=== PATIENT | female | born 1935 | race Caucasian/White ===

== ENCOUNTER 2016-11-29 17:37 | Inpatient (IN) | payer OTHER, MEDICARE ==
[~2016-11-29] VITALS: Ht 175.3 cm; Wt 96.6 kg
[~2016-11-29 17:37] MED LIST: CYMBALTA 30 MG30 MG PO; DUREZOL 5 ML5 ML OD; ILEVRO 1.7 ML1.7 ML OD; LIDODERM 5% PAT1 PAT EXT; LIPITOR80 MG PO; MULTAQ 400MG400 MG PO; PROTONIX 40MG T40 MG PO; TOPROL XL 25MG25 MG PO; TYLENOL TAB 32325 MG PO; VESICARE 5MG5 MG PO; VIGAMOX 0.60 GTT/1 B OD; VITAB121000 PO; VITAMIN D1000 IU PO; XARELTO20 MG PO
--- NOTE | 2016-11-29 17:42 | ED MVC/FALL/TRAUMA COMPLAINT ---
History of Present Illness General Chief Complaint: Fall Stated Complaint: BIBA FOR CALF PAIN S/P FALL Source: patient, EMS Exam Limitations: no limitations Allergies Coded Allergies: latex (BLISTERS 11/29/16) Reconcile Medications Amiodarone HCl 200 MG TABLET 1 TAB PO DAILY HEART (Reported) Atorvastatin Calcium 80 MG TABLET 1 TAB PO DAILY CHOLESTEROL (Reported) Escitalopram Oxalate 10 MG TABLET 1 TAB PO DAILY MENTAL HEALTH (Reported) Magnesium 200 MG TABLET 1 TAB PO DAILY SUPPLEMENT (Reported) Metoprolol Succinate 50 MG TAB.ER.24H 1 TAB PO DAILY HEART/BP (Reported) Multivitamin (Multi-Day Vitamins) 1 EACH TABLET 1 TAB PO DAILY SUPPLEMENT ( Reported) Pantoprazole Sodium 40 MG TABLET.DR 1 TAB PO DAILY GI (Reported) Rivaroxaban (Xarelto) 20 MG TABLET 1 TAB PO DAILY BLOOD THINNER (Reported) with food Solifenacin Succinate (Vesicare) 5 MG TABLET 1 TAB PO DAILY BLADDER (Reported ) Tramadol HCl 50 MG TABLET 1 TAB PO Q4-6H PRN PAIN (Reported) Triage Nurses Notes Reviewed? yes Onset: Abrupt Duration: hour(s): (1) Timing: multiple episodes today Severity: moderate, severe Injuries/Fall Location: lower extremity Method of Injury: fall Loss of Consciousness: no loss of consciousness Modifying Factors: Worsens With: movement. Associated Symptoms: KNEE SWELLING HPI: This is an 81-year-old female with history of sciatica, spinal stenosis, previous back surgeries done by Dr. Birmingham who presents to the ER with chief complaint of acute onset of left knee and left leg pain. She states she was coming home from a doctor's appointment and while trying to climb up stairs she states her left leg give way and she fell twice. She injured only her leg below the knee. Denies any head injury. Patient has a history of also of a Phalen on blood thinners. She was not able to bear weight after the fall and used her [employer] to call EMS. He should without pain in that extremity until the fall today. (NOE CHAIDEZ,YARA) Vital Signs & Intake/Output Vital Signs & Intake/Output Vital Signs Date Time Temp Pulse Resp B/P B/P Pulse O2 O2 Flow FiO2 Mean Ox Delivery Rate 11/29 2057 97.0 64 17 148/62 99 Room Air 11/29 1742 96.5 57 18 152/65 98 Room Air Past History Travel History Traveled to [place] past 21 day No Medical History Any Pertinent Medical History? 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 No (YARA LIU MD) Review of Systems Review of Systems Constitutional: Denies: chills, fever. Eyes: Reports: no symptoms. Ears, Nose, Throat, Mouth: Reports: no symptoms. Respiratory: Denies: cough, short of breath. Cardiovascular: Denies: chest pain. Gastrointestinal/Abdominal: Denies: abdominal pain. Genitourinary: Reports: no symptoms. Musculoskeletal: Reports: back pain (CHRONIC), joint pain, joint swelling. Skin: Reports: no symptoms. Neurological/Psychological: Denies: anxiety, numbness. All Other Systems: Reviewed and Negative (YARA LIU MD) Physical Exam Physical Exam General Appearance: well developed/nourished, alert, awake, anxious, mild distress, moderate distress Head: atraumatic, normal appearance Eyes: Bilateral: normal appearance, PERRL, EOMI. Ears, Nose, Throat, Mouth: hearing grossly normal, moist mucous membrane Neck: normal inspection, supple, full range of motion Respiratory: normal breath sounds, chest non-tender, no respiratory distress Cardiovascular: irregularly irregular Peripheral Pulses: 2+ radial (R), 2+ radial (L) Gastrointestinal: soft, non-tender Extremities: LEFT KNEE SWOLLEN, TENDER TO PALPATION TENDER OVER FIBULAR HEAD ON LEFT NO BRUISING STABLE KNEE JOINT Neurologic/Psych: no motor/sensory deficits, awake, alert Skin: intact, normal color, warm/dry Core Measures ACS in differential dx? No Severe Sepsis Present: No Septic Shock Present: No (YARA LIU MD) Progress Differential Diagnosis: FRACTURE, SPRAIN, DISLOCATION Plan of Care: Orders Procedure Date/time Status Heart Healthy Diet 11/30 B Active CBC WITHOUT DIFFERENTIAL 11/30 0600 Active BASIC ELECTROLYTES PLUS BUN&CR 11/30 06 Active PT Evaluate & Treat 11/29 230 Active Pathway - chart 11/29 230 Active House Staff 11/29 230 Active Code Status 11/29 230 Active Vital Signs 11/30 2227 Active Teach/Educate 11/30 2227 Active Pain Treatment and Response 11/30 2227 Active Nutritional Intake, Monitor 11/30 2227 Active Isolation 11/30 2227 Active Intake & Output 11/30 2227 Active Patient Care Conference 11/30 2227 Active Activity/Ambulation 11/30 2227 Active Saline Lock 11/29 2104 Active Misc Message 11/29 2104 Active ED Holding Orders 11/29 2104 Active Vital Signs 11/29 2104 Active Activity/Ambulation 11/29 2104 Active Code Status 11/29 2104 Complete Patient Data 11/29 2042 Active Admit to inpatient 11/29 2040 Active URINALYSIS 11/29 193 Active COMPREHENSIVE METABOLIC PANEL 11/29 193 Complete CBC WITHOUT DIFFERENTIAL 11/29 193 Complete CASE MANAGEMENT CONSULT 11/29 1928 Active Intake & Output 11/29 1751 Active VTE Mechanical Prophylaxis 11/29 UNK Active Vital Signs 11/29 UNK Active MISTAKE 11/29 UNK Active Intake & Output 11/29 UNK Active Current Medications Sig/Alexandra Start time Last Medication Dose Stop Time Status Admin Atorvastatin Calcium 80 MG 1700 11/30 1700 AC (Lipitor) Amiodarone HCl 200 MG DAILY 11/30 1000 AC (Cordarone) Escitalopram Oxalate 10 MG DAILY 11/30 1000 AC (Lexapro) Metoprolol Succinate 50 MG DAILY 11/30 1000 AC (Toprol Xl) Oxybutynin Chloride 5 MG DAILY 11/30 1000 AC (Ditropan) Rivaroxaban 20 MG DAILY 11/30 1000 AC (Xarelto) Omeprazole 40 MG DAILY AC 11/30 0700 AC (Prilosec) Tramadol HCl 50 MG Q6 PRN 11/29 2315 AC (Ultram) Acetaminophen 650 MG Q6P PRN 11/29 230 AC (Tylenol) Morphine Sulfate 2 MG Q4P PRN 11/29 230 AC (Morphine) Laboratory Tests 11/29/161947: CBC w Diff NO MAN DIFF REQ, RBC 4.38, MCV 92.4, MCH 30.3, RDW 15.5 H, MPV 9.9, Gran % 78.4 H, Lymphocytes % 14.5 L, Monocytes % 5.9, Eosinophils % 0.9, Basophils % 0.3, Absolute Granulocytes 6.6 H, Absolute Lymphocytes 1.2, Absolute Monocytes 0.5, Absolute Eosinophils 0.1, Absolute Basophils 0, PUBS MCHC 32.8 L 11/29/161942: Anion Gap 12, Estimated GFR > 60, BUN/Creatinine Ratio 23.8, Glucose 95, Calcium 9.7, Total Bilirubin 0.8, AST 46 H, ALT 58 H, Alkaline Phosphatase 112, Total Protein 7.6, Albumin 4.3, Globulin 3.3, Albumin/Globulin Ratio 1.3 TYLENOL, XRAYS ORDERED. XRAYS NEGATIVE. WILL ATTEMPT TO AMBULATE. SIGNED OUT TO DR CIFUENTES. (NOE CHAIDEZ,YARA) Diagnostic Imaging: Viewed by Me: Radiology Read. Discussed w/RAD: Radiology Read. Radiology Impression: PATIENT: ARMANDO HEATH PRESENT AGE: 81 PATIENT ACCOUNT NO: [id number] : 36 LOCATION: [facility] ORDERING PHYSICIAN: YARA LIU MD SERVICE DATE: 11/29/16 EXAM TYPE: RAD - XRY-KNEE COMPLETE LEFT; [id number], LEFT EXAMINATION: 1. Left knee. 2. Left tibia-fibula. CLINICAL INFORMATION: Left knee pain and swelling. Fall. COMPARISON: None TECHNIQUE: 1. Left knee: 3 views of left knee 2. Left tibia- fibula. 2 views FINDINGS: 1. LEFT KNEE. No acute abnormality. No fracture or dislocation. There is osteopenia. Degenerative joint disease. [id number] contact of the femur and tibia at the medial femoral tibial joint with marginal spur of the bone. There is significant spur of the patella and femur at the patellofemoral joint with joint space narrowing. No joint effusion. 2. LEFT TIBIA-FIBULA: No fracture. Tibia and fibula intact. IMPRESSION: 1. Left knee. No fracture or dislocation. Degenerative joint disease. 2. Left tibia-fibula. Normal. DICTATED BY: MILLY COOPER MD DATE/TIME DICTATED:11/29/161851 DATA SERVICES DEVELOPER:MANNY DATE/TIME TRANSCRIBED:11/29/161851 CONFIDENTIAL, DO NOT COPY WITHOUT APPROPRIATE AUTHORIZATION. <Electronically signed in Other Vendor System> SIGNED BY: MILLY COOPER MD 11/29/16 4568 Hand-Off Endorsed To: ATUL CIFUENTES MD Endorsed Time: 1911 Pending: other (AMBULATION TRIAL/CASE MANAGE) (NOE CHAIDEZ,YARA) Radiology Impression: PATIENT: ARMNADO HEATH PRESENT AGE: 81 PATIENT ACCOUNT NO: [id number] : 36 LOCATION: [facility] ORDERING PHYSICIAN: ATUL CIFUENTES MD SERVICE DATE: 11/29/16 EXAM TYPE: CAT - CT LOWER EXT WO IV CONTRAST; CT LUMB SPINE WO IV CONTRAST EXAMINATION: CT LEFT KNEE AND CT LUMBAR SPINE WITHOUT CONTRAST. CLINICAL INFORMATION: Left knee pain evaluate for tibial fracture. 3 views back surgeries. Pain. COMPARISON: Left knee x-ray performed 11/29/2016. TECHNIQUE: Axilla 2.5 mm thin and reformatted 1 mm thin coronal and sagittal images of left knee were obtained. Dose 1055. Axial 2.5 mm thin and reformatted 2 mm coronal and sagittal images of lumbar spine were obtained. Dose 982. FINDINGS: LEFT LOWER EXTREME/KNEE. There is diffuse osteopenia. There is loss of tricompartment joint space with moderate periarticular spurring. There is no visible fracture. Especially there is no tibial plateau fracture seen. There is no abnormal joint effusion noted either. There is a small to moderate-sized enthesophyte along the superior patella. No loose bodies identified in the joint space. The soft tissues are normal. LUMBAR SPINE: On sagittal reconstructed lumbar spine there is normal lumbar lordosis. Loss of disc height from L1-L2 through L5-S1 disc levels with vacuum disc phenomenon is noted. There is moderate spondylosis seen at all lumbar disc levels. The prevertebral an paraspinal soft tissues appear unremarkable. There is no visible acute fracture or dislocation seen. There is a broad-based laminectomy from L1 through L5 vertebra.. There is minimal disc bulge at L1-L2 disc level but no spinal stenosis. The neural foramina are patent. L2-L3 disc level there is posterior spondylosis/bulge complex without spinal stenosis. The new foramina are patent bilaterally. At L3-L4 disc level there is mild central disc bulge/osteophyte complex without spinal stenosis. New foramina patent bilaterally. At L4-L5 disc level there is diffuse bulge without spinal stenosis. The neural foramina are patent. Mild facet joint hypertrophy seen. At L5-S1 disc level there is no signal disc bulge, herniation or spinal stenosis. IMPRESSION: No visible fracture of left knee. There is diffuse osteopenia. There is tricompartment degenerative arthritis. No loose bodies or joint effusion seen. Laminectomy from L1 to L5 vertebra. There is underlying diffuse bulge/osteophyte complex L1-L2 level L2 L2 well 3-4 disc level and mild bulge L4-L5 disc levels but without spinal stenosis. There is no visible acute fracture or dislocation. There is moderate ventral spondylosis. DICTATED BY: TYSHAWN CHAIDEZ,KRISSY DATE/TIME DICTATED:11/29/162102 DATA SERVICES DEVELOPER:MANNY DATE/TIME TRANSCRIBED:11/29/162102 CONFIDENTIAL, DO NOT COPY WITHOUT APPROPRIATE AUTHORIZATION. <Electronically signed in Other Vendor System> SIGNED BY: TYSHAWN CHAIDEZ,KRISSY 11/29/162119 Comments: Patient unable to ambulate on her left leg. Patient lives at home alone. Patient is unsafe to go home. We'll obtain a CAT scan to rule out a tibial plateau fracture. Family is also requesting a CAT scan of her lumbar spine since she has had 3 surgeries on her lower back and the last time there were complications and they're concerned that this may be attributing to her leg pain. Labs are being drawn. Patient will require admission to the hospital for pain control, PT evaluation with anticipation of short-term rehabilitation. (ESAU CHAIDEZ,ATUL Arana) Departure Departure Disposition: STILL A PATIENT Condition: Stable Clinical Impression Primary Impression: Left knee pain Referrals: JENNIFER CHAIDEZ,LACHO Bowden (PCP/Family) Departure Forms: Customer Survey General Discharge Information (NOE CHAIDEZ,YARA) Admission Note Spoke With: CLAIR MILLS MD Documentation of Exam: Documentation of any treatments & extenuating circumstances including Concerns Regarding Discharge (functional status, medication knowledge or non-compliance, living conditions, etc.) that warrant an admission rather than observation: [ Patient is unable to ambulate despite Tylenol. Patient lives at home alone. Patient is very unsafe to be discharged at this point. A CAT scan has been ordered on her need to rule out a tibial plateau fracture as well as her lumbar spine since she has known spinal stenosis and has had 3 surgeries on her spine. Patient will require physical therapy evaluation and treatment. Anticipate short-term rehabilitation. If the CAT scan does show a tibial plateau fracture, orthopedics will be consulted.] (ESAU CHAIDEZ,ATUL Arana)
[2016-11-29] MEDS ORDERED: XARELTO20 M2 PO (18:51)
[2016-11-29] MEDS ORDERED: METOPROLOL SUCC50 M2 PO (18:52)
[2016-11-29] MEDS ORDERED: VESICARE5 M1 PO (18:52)
[2016-11-29] MEDS ORDERED: ATORVASTATIN CA80 M1 PO (18:52)
[2016-11-29] MEDS ORDERED: PANTOPRAZOLE SO40 M1 PO (18:52)
[2016-11-29] MEDS ORDERED: AMIODARONE HCL200 M1 PO (18:52)
[2016-11-29] MEDS ORDERED: TRAMADOL HCL50 M1 PO (18:53)
[2016-11-29] MEDS ORDERED: ESCITALOPRAM OX10 MG PO (18:53)
[2016-11-29] MEDS ORDERED: MULTI-DAY VITA1 EACH PO (18:54)
[2016-11-29] MEDS ORDERED: MAGNESIUM200 M1 PO (18:54)
--- NOTE | 2016-11-29 18:59 | RADIOLOGY REPORT ---
EXAMINATION: 1. Left knee. 2. Left tibia-fibula. CLINICAL INFORMATION: Left knee pain and swelling. Fall. COMPARISON: None TECHNIQUE: 1. Left knee: 3 views of left knee 2. Left tibia-fibula. 2 views FINDINGS: 1. LEFT KNEE. No acute abnormality. No fracture or dislocation. There is osteopenia. Degenerative joint disease. [id number] contact of the femur and tibia at the medial femoral tibial joint with marginal spur of the bone. There is significant spur of the patella and femur at the patellofemoral joint with joint space narrowing. No joint effusion. 2. LEFT TIBIA-FIBULA: No fracture. Tibia and fibula intact. IMPRESSION: 1. Left knee. No fracture or dislocation. Degenerative joint disease. 2. Left tibia-fibula. Normal.
[2016-11-29 20:10] LABS: ABSOLUTE BASOPHIL COUNT 0 /CUMM (0.0-0.2); ABSOLUTE EOSINOPHIL COUNT 0.1 /CUMM (0.0-0.7); ABSOLUTE GRANULOCYTE CT 6.6 /CUMM (1.4-6.5); ABSOLUTE LYMPH COUNT 1.2 /CUMM (1.2-3.4); ABSOLUTE MONOCYTE COUNT 0.5 /CUMM (0.10-0.60); BASOPHIL % 0.3 % (0.0-2.0); EOSINOPHIL % 0.9 % (0-5); GRANULOCYTE % 78.4 % (42.2-75.2); HEMATOCRIT 40.4 % (37-47); MEAN CORPUSCULAR HGB 30.3 PG (27.0-31.0); MEAN CORPUSCULAR HGB CONC 32.8 G/DL (33.0-37.0); MEAN CORPUSCULAR VOLUME 92.4 FL (81.0-99.0); MEAN PLATELET VOLUME 9.9 FL (7.4-10.4); PLATELET COUNT 213 /CUMM (130-400); RBC DISTRIBUTION WIDTH 15.5 % (11.5-14.5); RED BLOOD CELL CT 4.38 /CUMM (4.20-5.40); WHITE BLOOD CELL COUNT 8.4 /CUMM (4.8-10.8)
--- NOTE | 2016-11-29 21:20 | CT SCAN REPORT ---
EXAMINATION: CT LEFT KNEE AND CT LUMBAR SPINE WITHOUT CONTRAST. CLINICAL INFORMATION: Left knee pain evaluate for tibial fracture. 3 views back surgeries. Pain. COMPARISON: Left knee x-ray performed 11/29/2016. TECHNIQUE: Axilla 2.5 mm thin and reformatted 1 mm thin coronal and sagittal images of left knee were obtained. Dose 1055. Axial 2.5 mm thin and reformatted 2 mm coronal and sagittal images of lumbar spine were obtained. Dose 982. FINDINGS: LEFT LOWER EXTREME/KNEE. There is diffuse osteopenia. There is loss of tricompartment joint space with moderate periarticular spurring. There is no visible fracture. Especially there is no tibial plateau fracture seen. There is no abnormal joint effusion noted either. There is a small to moderate-sized enthesophyte along the superior patella. No loose bodies identified in the joint space. The soft tissues are normal. LUMBAR SPINE: On sagittal reconstructed lumbar spine there is normal lumbar lordosis. Loss of disc height from L1-L2 through L5-S1 disc levels with vacuum disc phenomenon is noted. There is moderate spondylosis seen at all lumbar disc levels. The prevertebral an paraspinal soft tissues appear unremarkable. There is no visible acute fracture or dislocation seen. There is a broad-based laminectomy from L1 through L5 vertebra.. There is minimal disc bulge at L1-L2 disc level but no spinal stenosis. The neural foramina are patent. L2-L3 disc level there is posterior spondylosis/bulge complex without spinal stenosis. The new foramina are patent bilaterally. At L3-L4 disc level there is mild central disc bulge/osteophyte complex without spinal stenosis. New foramina patent bilaterally. At L4-L5 disc level there is diffuse bulge without spinal stenosis. The neural foramina are patent. Mild facet joint hypertrophy seen. At L5-S1 disc level there is no signal disc bulge, herniation or spinal stenosis. IMPRESSION: No visible fracture of left knee. There is diffuse osteopenia. There is tricompartment degenerative arthritis. No loose bodies or joint effusion seen. Laminectomy from L1 to L5 vertebra. There is underlying diffuse bulge/osteophyte complex L1-L2 level L2 L2 well 3-4 disc level and mild bulge L4-L5 disc levels but without spinal stenosis. There is no visible acute fracture or dislocation. There is moderate ventral spondylosis.
--- NOTE | 2016-11-29 21:47 | History & Physical ---
[facility] 2146: General Information and HPI MD Statement: I have seen and personally examined ARMANDO HEATH and documented this H&P. The patient is a 81 year old F who presented with a patient stated chief complaint of [fall]. Source of Information: patient Exam Limitations: no limitations History of Present Illness: 81-year-old female with past medical history of paroxysmal atrial fibrillation on xarelto, coronary artery disease status post bare metal stent, 6 years ago, compatible with MRI, sciatica, spinal stenosis, hyperlipidemia, arrhythmia and tachycardia status post Holter monitor placement, came in for chief complaint of left leg pain status post fall. Over the last week, patient has been having sciatica pain, low back pain, and is supposed to get steroid injection on 11/30/2016. Patient was going into her house on 11/29/2016, when her left leg "gave out" outside her house and she fell forward. She was unable to get up, her neighbor helped her up. She then went to see Dr. Perez. She came home, and fell again in her house and was unable to get up. She reports 6 out of 10 resting left leg pain, and severe 10 out of 10 pain on weightbearing. Therefore she is not felt to be safe at home and will likely need acute rehabilitation. Her pain is mainly on the lateral side of the knee and just below the knee. Range of motion was severely compromised due to pain. She was only able to do 10-20 left knee flexion. She reports some tingling sensation on both lower extremities. She reports her right lower extremity has always been larger than her left lower extremity. She denies palpitations, loss of consciousness, head trauma, seizure-like activities including thumb biting, urinary incontinence, shaking. She denies chest pain, headache, lightheadedness, visual changes, shortness of breath. Allergies latex Family history: Mother myocardial infarction at age of 68, brother myocardial infarction due to 45, sister with pancreatic cancer SH: Patient lives alone. She drinks 1-2 glasses of wine every day. Denies smoking denies illicit drug use. Allergies/Medications Allergies: Coded Allergies: latex (BLISTERS 11/29/16) Home Med list Amiodarone HCl 200 MG TABLET 1 TAB PO DAILY HEART (Reported) Atorvastatin Calcium 80 MG TABLET 1 TAB PO DAILY CHOLESTEROL (Reported) Escitalopram Oxalate 10 MG TABLET 1 TAB PO DAILY MENTAL HEALTH (Reported) Magnesium 200 MG TABLET 1 TAB PO DAILY SUPPLEMENT (Reported) Metoprolol Succinate 50 MG TAB.ER.24H 1 TAB PO DAILY HEART/BP (Reported) Multivitamin (Multi-Day Vitamins) 1 EACH TABLET 1 TAB PO DAILY SUPPLEMENT ( Reported) Pantoprazole Sodium 40 MG TABLET.DR 1 TAB PO DAILY GI (Reported) Rivaroxaban (Xarelto) 20 MG TABLET 1 TAB PO DAILY BLOOD THINNER (Reported) with food Solifenacin Succinate (Vesicare) 5 MG TABLET 1 TAB PO DAILY BLADDER (Reported ) Tramadol HCl 50 MG TABLET 1 TAB PO Q4-6H PRN PAIN (Reported) Past History Travel History Traveled to [place] past 21 day No Medical History Neurological: dizziness, vertigo EENT: NONE Cardiovascular: CAD Respiratory: NONE Gastrointestinal: GERD Hepatic: NONE Renal: NONE Musculoskeletal: chronic back pain, sciatica, spinal stenosis Psychiatric: NONE Endocrine: NONE Blood Disorders: NONE Cancer(s): NONE 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 Home Who Do You Live With? self Services at Home: None Primary Language: Khmer Smoking Status: Never Smoked ETOH Use: 1-2 glasses of wine daily Illicit Drug Use: denies illicit drug use Functional Ability ADLs Independent: dressing, eating, toileting, bathing. Ambulation: independent IADLs Independent: shopping, housework, finances, food prep, telephone, transportation , medication admin. Review of Systems Review of Systems Constitutional: Denies: chills, fever, weakness. EENTM: Denies: blurred vision, double vision, visual changes. Cardiovascular: Denies: chest pain, edema, palpitations, peripheral edema. Respiratory: Denies: cough, orthopnea, short of breath, sputum production. GI: Denies: abdominal pain, bloating, constipation, diarrhea, nausea, vomiting. Genitourinary: Denies: dysuria. Musculoskeletal: Reports: see HPI, back pain, muscle pain. Exam & Diagnostic Data Last 24 Hrs of Vital Signs/I&O Vital Signs Date Time Temp Pulse Resp B/P B/P Pulse O2 O2 Flow FiO2 Mean Ox Delivery Rate 05/30 2332 97.5 64 16 140/74 96 Room Air 11/298 97.0 64 17 148/62 99 Room Air 11/29 1743 96.5 57 18 152/65 98 Room Air Intake & Output 11/30 0800 11/30 0000 11/29 1600 Intake Total Output Total Balance Patient 96.615 kg Weight Weight Reported by Patient Measurement Method Physical Exam General Appearance Alert, Oriented X3, Cooperative, Mild Distress Skin No Rashes, No Breakdown, No Significant Lesion Skin Temp/Moisture Exam: Warm/Dry Sepsis Skin Exam (color): Normal for Ethnicity HEENT Atraumatic, PERRLA, EOMI, Mucous Membr. moist/pink Neck Supple, No JVD, +2 Carotid Pulse wo Bruit, No LAD Lymphatic Axillary nl, Cervical nl Cardiovascular Regular Rate, Normal S1, Normal S2, No Murmurs, Gallops, Rubs Lungs Clear to Auscultation, Normal Air Movement Abdomen Normal Bowel Sounds, Soft, No Tenderness Neurological Normal Speech, Strength at 5/5 X4 Ext, Sensation Intact Extremities No Edema, rle bigger than lle. chronic , tenderness over lateral left knee and calf. no effussion. Vascular Normal Pulses, Pulses Symmetrical Last 24 Hrs of Labs/Leonard: Laboratory Tests 11/29/161947: CBC w Diff NO MAN DIFF REQ, RBC 4.38, MCV 92.4, MCH 30.3, RDW 15.5 H, MPV 9.9, Gran % 78.4 H, Lymphocytes % 14.5 L, Monocytes % 5.9, Eosinophils % 0.9, Basophils % 0.3, Absolute Granulocytes 6.6 H, Absolute Lymphocytes 1.2, Absolute Monocytes 0.5, Absolute Eosinophils 0.1, Absolute Basophils 0, PUBS MCHC 32.8 L 11/29/161942: Anion Gap 12, Estimated GFR > 60, BUN/Creatinine Ratio 23.8, Glucose 95, Calcium 9.7, Total Bilirubin 0.8, AST 46 H, ALT 58 H, Alkaline Phosphatase 112, Total Protein 7.6, Albumin 4.3, Globulin 3.3, Albumin/Globulin Ratio 1.3 Diagnostic Data Other Results EXAM TYPE: CAT - CT LOWER EXT WO IV CONTRAST; CT LUMB SPINE WO IV CONTRAST EXAMINATION: CT LEFT KNEE AND CT LUMBAR SPINE WITHOUT CONTRAST. CLINICAL INFORMATION: Left knee pain evaluate for tibial fracture. 3 views back surgeries. Pain. COMPARISON: Left knee x-ray performed 11/29/2016. TECHNIQUE: Axilla 2.5 mm thin and reformatted 1 mm thin coronal and sagittal images of left knee were obtained. Dose 1055. Axial 2.5 mm thin and reformatted 2 mm coronal and sagittal images of lumbar spine were obtained. Dose 982. FINDINGS: LEFT LOWER EXTREME/KNEE. There is diffuse osteopenia. There is loss of tricompartment joint space with moderate periarticular spurring. There is no visible fracture. Especially there is no tibial plateau fracture seen. There is no abnormal joint effusion noted either. There is a small to moderate-sized enthesophyte along the superior patella. No loose bodies identified in the joint space. The soft tissues are normal. LUMBAR SPINE: On sagittal reconstructed lumbar spine there is normal lumbar lordosis. Loss of disc height from L1-L2 through L5-S1 disc levels with vacuum disc phenomenon is noted. There is moderate spondylosis seen at all lumbar disc levels. The prevertebral an paraspinal soft tissues appear unremarkable. There is no visible acute fracture or dislocation seen. There is a broad-based laminectomy from L1 through L5 vertebra.. There is minimal disc bulge at L1-L2 disc level but no spinal stenosis. The neural foramina are patent. L2-L3 disc level there is posterior spondylosis/bulge complex without spinal stenosis. The new foramina are patent bilaterally. At L3-L4 disc level there is mild central disc bulge/osteophyte complex without spinal stenosis. New foramina patent bilaterally. At L4-L5 disc level there is diffuse bulge without spinal stenosis. The neural foramina are patent. Mild facet joint hypertrophy seen. At L5-S1 disc level there is no signal disc bulge, herniation or spinal stenosis. IMPRESSION: No visible fracture of left knee. There is diffuse osteopenia. There is tricompartment degenerative arthritis. No loose bodies or joint effusion seen. Laminectomy from L1 to L5 vertebra. There is underlying diffuse bulge/osteophyte complex L1-L2 level L2 L2 well 3-4 disc level and mild bulge L4-L5 disc levels but without spinal stenosis. There is no visible acute fracture or dislocation. There is moderate ventral spondylosis. DICTATED BY: TYSHAWN CHAIDEZ,KRISSY DATE/TIME DICTATED:11/29/162102 EXAM TYPE: RAD - XRY-KNEE COMPLETE LEFT; [id number]-LGAEH-TSYTEP, LEFT EXAMINATION: 1. Left knee. 2. Left tibia-fibula. CLINICAL INFORMATION: Left knee pain and swelling. Fall. COMPARISON: None TECHNIQUE: 1. Left knee: 3 views of left knee 2. Left tibia-fibula. 2 views FINDINGS: 1. LEFT KNEE. No acute abnormality. No fracture or dislocation. There is osteopenia. Degenerative joint disease. [id number] contact of the femur and tibia at the medial femoral tibial joint with marginal spur of the bone. There is significant spur of the patella and femur at the patellofemoral joint with joint space narrowing. No joint effusion. 2. LEFT TIBIA-FIBULA: No fracture. Tibia and fibula intact. IMPRESSION: 1. Left knee. No fracture or dislocation. Degenerative joint disease. 2. Left tibia-fibula. Normal. DICTATED BY: MILLY COOPER MD DATE/TIME DICTATED:11/29/161851 Assessment/Plan Assessment: 81-year-old female with past medical history of paroxysmal atrial fibrillation on xarelto, coronary artery disease status post bare metal stent, 6 years ago, compatible with MRI, sciatica, spinal stenosis, hyperlipidemia, arrhythmia and tachycardia status post Holter monitor placement, came in for chief complaint of left leg pain status post fall. Imaging does not reveal acute fracture. She was unable to bear weight on her left lower extremity due to severe pain. Therefore it will not be safe for her to go home, she is admitted for orthopedic consult, and will likely need acute rehabilitation. Problem list: # Difficulty ambulating s/p fall, likely need acute rehab # Mild transaminitis # Difficulty ambulating s/p fall, likely need acute rehab * Admit to general medicine * PT consult * Orthopedic consult * morphine 2 mg IV every 4 as needed for severe pain, tramadol 50 mg every 6 when necessary moderate pain, Tylenol 650 mg every 6 when necessary mild pain * Follow-up EKG * f/u b12, orthostat vitals # Mild transaminitis - AST 46, ALT 58 * Follow-up LFT # Continue home meds Metoprolol XL 50 mg daily Amiodarone 200 mg daily Atorvastatin 80 mg daily Omeprazole 40 mg daily Lexapro 10 mg daily Oxybutynin 5 mg daily Diet: heart healthy PP: morphine 2 mg IV every 4 as needed for severe pain, tramadol 50 mg every 6 when necessary moderate pain, Tylenol 650 mg every 6 when necessary mild pain DVT ppx: alps and xarelto FULL CODE As Ranked By This Provider Problem List: 1. Left knee pain Core Measures/Miscellaneous Acute Coronary Syndrome ACS Diagnosis: No Cerebrovascular Accident CVA/TIA Diagnosis: No Congestive Heart Failure CHF Diagnosis: No Venous Thromboembolism VTE Risk Factors: Age > 40, Immobility, paresis No Mech VTE prophylaxis d/t: No contraindications No VTE Pharm Prophylaxis d/t: No contraindications VTE Diagnosis: No VTE Type: NONE VTE Confirmed by (Test): NONE Severe Sepsis Severe Sepsis Present: No Septic Shock Septic Shock Present: No Miscellaneous Documentation Attending Case Discussed With: CLAIR MILLS MD Primary Care Physician: LACHO PEREZ MD Patient sees these Specialists Dr. Cornel Brunson cardiology Level of Patient Care: General Medicine LESTER MOJICA 11/29/16 2202: Resident Review Statement Resident Statement: examined this patient, discussed with process engineering intern, agreed with process engineering intern, discussed with family, reviewed EMR data (avail), discussed with nursing , discussed with case mgmt, reviewed images, amended to note Other Findings: 81-year-old woman with a past medical history of coronary artery disease status post bare metal MRI compatible stent placement 6 years ago, history of sciatica, spinal stenosis, history of arrhythmias, paroxysmal A. fib on Xarelto, presented to the ED with chief complaint of left knee calf pain status post fall. According to patient, she was in her usual state of health up until this morning when she was coming home from a doctor's appointment and felt as if her left leg giveaway and she fell down forward. She denies losing consciousness, hitting her head, any strokelike symptoms including facial droop, slurred speech, any seizure-like activity, urinary or fecal incontinence, I will make, shakes and oriented tremors. She denies any chest pain, palpitations, dizziness, lightheadedness, nausea, prodromal-like symptoms. She states that she called out for help and her neighbor helped her get into the house and then she had another episode where her legs gave way and she fell down. Since then she's had excruciating pain in her left knee. She grades her pain as 6/10 stating that it worsens to about a 10 out of 10 when she tries to ambulate on it. Of note she panics. Setting pain radiating down her right lower extremity and was scheduled to get steroid injections however was unable to make the appointments as she is here in the ER. Vitals at the time of admission blood pressure 152/65, respiratory rate 18, pulse 57, afebrile saturating 98% on RA. On physical exam she is alert and oriented 3 in no acute distress on sitting comfortably in bed. HEENT revealed PERRLA, dry mucous membranes. Examination of the neck did not reveal an elevated JVP, cervical lymphadenopathy. Cardiac exam was pertinent for normal S1, and S2, no murmurs rubs or gallops appreciated. Chest was clear to auscultation bilaterally. Abdominal exam is benign abdomen soft, nontender, nondistended with normal bowel sounds heard in all 4 quadrants. Examination of the lower extremity the field lower extremity there was a little bit more swollen compared to the left lower extremity however this is reportedly chronic. There is no erythema, skin breakdown, effusion, however, tenderness to palpation located along the left lateral aspect of th eproximal end of the fibula. Pulses were intact bilaterally. There was no edema. Of note range of motion was limited in her left knee with minimal flexion to about 10. Neuro exam was grossly unremarkable. Labs pertinent for an H&H of 13.2/40.4, normal MCV of 92.4, white blood cell count of 8400 and platelet count 213,000. Serum chemistries revealed a sodium of 138, potassium of 4.2, BUN 19, creatinine 0.8. LFTs first for a total total 0.8, AST/ALT of 46/58 and an alkaline phosphatase of 112. UA not received. X-ray of the left knee, tibia and fibula revealed no fracture or dislocation, degenerative joint disease. Lumbar CT was done which showed laminectomy from L1 to L5, underlying diffuse posterior osteophyte complex at L1-L2, 2 as well as L3, L4 disc level and mild bulge at L4 5 disc level but without spinal stenosis. There is no visible acute fracture or dislocation, moderate amount of ventral spondylosis. In the ER she received Tylenol 975 mg by mouth 1 Assessment and plan Admit patient to general medicine #Left lower extremity weakness resulting in mechanical fall There seemed to be no signs and symptoms of saddle anesthesia. CT of the lumbar spine and x-ray did not show any fracture or spinal cord compression She lives by herself and will benefit from going to rehab. PT eval in AM Will get ortho consult in AM. Follow-up EKG F/U orthostat vitasl. Pain management with IV Tylenol thousand milligrams 3 times a day when necessary , tramadol 50 mg every 6 when necessary, and morphine 2 mg every 4 when necessary #Coronary artery disease s/p stent placements Continue on atorvastatin 80 mg daily, metoprolol 50 mg extended release #History of A. fib, arrhythmias Continue amiodarone 200 mg daily, Xarelto 20 mg daily #GERD Continue on Prilosec 40 mg daily #History of depression Continue Lexapro 10 mg daily #Urinary incontinence Patient on oxybutynin 5 mg daily DVT prophylaxis On Xarelto 20 mg daily Diet Heart healthy CODE STATUS Full code CLAIR MILLS 11/30/16 0444: Attending MD Review Statement Attending Statement Attending MD Statement: examined this patient, discuss w/resident/PA/STRATEGY SPECIALIST, agreed w/resident/PA/STRATEGY SPECIALIST, discussed with family, reviewed EMR data (avail), reviewed images, amended to note Attending Assessment/Plan: Cc: fall PMH: A. fib, HTN, HLD, CAD S/P stent, GERD, vertigo, lumbar radiculopathy, S/P LINQ placement Patient presented to ER after fall. Patient was returning home from doctor's appointment when she was trying to climb up the stairs her left leg gave out and she fell twice in the short duration. Second time she could not move left leg because of severe pain in calf. She was unable to bear weight after fall so EMS was called and she was brought in ER. She denies any loss of consciousness, presyncope, palpitations, chest pain, other weakness in upper extremity, facial drooping. Vitals: Afebrile, pulse 64, blood pressure, RRR, O2 saturation acceptable range. On exam: A O 3, cooperative, no acute distress, neck supple, JVD normal, no lymphadenopathy, mucosa moist, no focal neurological deficit, range of motions left lower extremity is limited secondary to pain in calf and lateral aspect of leg. There is no obvious knee effusion or open trauma. Left knee flexion up to 20 is possible. No dependent edema, no obvious skin rashes or inflammation CVS: S1-S2, RRR. RS: Clear to auscultate bilaterally. Abdomen: Soft, NT, ND, bowel sounds present. Labs: CBC, BMP unremarkable, AST 46, ALT 58, alkaline phosphatase 112, albumin 4.3 CT lumbar spine, CT lower extremity without IV contrast: 1. No visible fracture of left knee. There is diffuse osteopenia. There is tricompartment degenerative arthritis. No loose bodies or joint effusion seen. 2. Laminectomy from L1 to L5 vertebra. There is underlying diffuse bulge/ osteophyte complex L1-L2 level L2 L2 well 3-4 disc level and mild bulge L4-L5 disc levels but without spinal stenosis. 3. There is no visible acute fracture or dislocation. There is moderate ventral spondylosis. X-ray left knee, left tibia-fibula 1. Left knee. No fracture or dislocation. Degenerative joint disease. 2. Left tibia-fibula. Normal. A and P 81-year-old female with multiple comorbidities presented to ER after fall. Patient states that her left leg gave out, felt weak and she fell down. No loss of consciousness, chest pain or palpitation. No obvious trauma. Left calf is tender to touch, more so on the lateral aspect, restricted range of motion secondary to pain. Multiple imaging obtain in ER is unremarkable at this point. ? Musculoskeletal pain. Patient is unable to bear weight on left lower extremity and unable to ambulate. + Fall + Left calf pain + History of A. fib, HTN, HLD, CAD, GERD, vertigo, lumbar radiculopathy - Admit to general medicine - OT PT evaluation - Orthopedic consult in a.m. for persistent left lower extremity pain - Orthostatic vitals in a.m. - When necessary tramadol for pain control - Check vitamin B12 - Continue vitamin D supplementation - Continue her home medications including amiodarone, atorvastatin, Lexapro, metoprolol, Protonix, Cipro, Vesicare. - Evaluation for short-term rehabilitation
[2016-11-29 23:32] VITALS: BP 140/74
--- NOTE | 2016-11-30 04:46 | Admission Certification ---
Admission Certification Certification Statement - As attending physician, I certify that at the time of - admission, based on clinical presentation, severity of - symptoms, need for further diagnostic testing and - therapeutic interventions, and risk of adverse outcomes - without in-hospital treatment, in my clinical assessment, - this patient requires an acute hospital stay for a minimum - of two nights or longer. I have also considered psychsocial - factors such as support system, advanced age, financial - issues, cognitive issues, and failed out-patient treatments, - past re-admission history, safety of patient, and lack of - compliance as applicable. Specific rationale supporting this admission is: Left leg pain, S/P fall, unable to ambulate
[2016-11-30 06:00] VITALS: BP 142/68
[2016-11-30 06:26] VITALS: BP 142/68
--- NOTE | 2016-11-30 07:32 | PN- Housestaff ---
BENITA CHAIDEZ,LEIGH ANN 11/30/16 0732: Subjective Follow-up For: Left leg pain, after a fall Subjective: I followed up and examined the patient today. She is resting comfortably in bed , mentions that her leg pain is intermittent in the pain management that she is on currently is working. She does not have any other complaints. She is waiting to be evaluated/treated by a physical therapist later today. Review of Systems Constitutional: Reports: no symptoms. Objective Last 24 Hrs of Vital Signs/I&O Vital Signs Date Time Temp Pulse Resp B/P B/P Pulse O2 O2 Flow FiO2 Mean Ox Delivery Rate 11/30 1436 99.0 63 20 122/76 92 11/30 1008 68 110/70 11/30 1008 68 110/70 11/30 0626 64 142/68 11/30 0600 98.9 64 16 142/68 95 Room Air 11/29 2332 97.5 64 16 140/74 96 Room Air 11/29 2058 97.0 64 17 148/62 99 Room Air Intake & Output 11/30 1600 11/30 0800 11/30 0000 Intake Total 720 240 Output Total 400 400 Balance 320 -160 Intake, IV 120 Intake, Oral 600 240 Number 1 Bowel Movements Output, Urine 400 400 Patient 96.615 kg Weight Weight Reported by Patient Measurement Method Physical Exam General Appearance: Alert, Oriented X3, Cooperative, No Acute Distress Other Physical Findings: Skin No Rashes, No Breakdown, No Significant Lesion HEENT Atraumatic, PERRLA, EOMI, Mucous Membr. moist/pink Lymphatic Cervical nl Cardiovascular Regular Rate, Normal S1, Normal S2, Lungs Clear to Auscultation, Normal Air Movement Abdomen Normal Bowel Sounds, Soft, No Tenderness Neurological Normal Speech, Strength at 5/5 X4 Ext, Sensation Intact Extremities No Edema, rle bigger than lle. chronic , tenderness over lateral left knee and calf. no effussion. Vascular Normal Pulses, Pulses Symmetrical Current Medications: Current Medications Sig/Alexandra Start time Last Medication Dose Route Stop Time Status Admin Acetaminophen 650 MG Q6P PRN 11/29 2300 AC PO Acetaminophen 0 .STK-MED ONE 11/29 1836 DC PO Acetaminophen 975 MG ONCE ONE 11/29 1800 DC 11/29 PO 11/29 1801 1830 Amiodarone HCl 200 MG DAILY 11/30 1000 AC PO Atorvastatin Calcium 80 MG 1700 11/30 1700 AC PO Escitalopram Oxalate 10 MG DAILY 11/30 1000 AC PO Metoprolol Succinate 50 MG DAILY 11/30 1000 AC PO Morphine Sulfate 2 MG Q4P PRN 11/29 2300 AC IV Omeprazole 40 MG DAILY AC 11/30 0700 AC 11/30 PO 0533 Oxybutynin Chloride 5 MG DAILY 11/30 1000 AC PO Rivaroxaban 20 MG DAILY 11/30 1000 AC PO Tramadol HCl 50 MG Q6 PRN 11/29 2315 AC 11/30 PO 0534 Last 24 Hrs of Lab/Leonard Results Last 24 Hrs of Labs/Mics: Laboratory Tests 11/30/16 0610: Sodium Pending, Potassium Pending, Chloride Pending, Carbon Dioxide Pending, Anion Gap Pending, BUN Pending, Creatinine Pending, BUN/Creatinine Ratio Pending , Total Bilirubin Pending, Direct Bilirubin Pending, AST Pending, ALT Pending, Alkaline Phosphatase Pending, Total Protein Pending, Albumin Pending, CBC w Diff Pending, WBC Pending, RBC Pending, Hgb Pending, Hct Pending, MCV Pending, MCH Pending, RDW Pending, Plt Count Pending, MPV Pending, PUBS MCHC Pending 11/29/161947: CBC w Diff NO MAN DIFF REQ, RBC 4.38, MCV 92.4, MCH 30.3, RDW 15.5 H, MPV 9.9, Gran % 78.4 H, Lymphocytes % 14.5 L, Monocytes % 5.9, Eosinophils % 0.9, Basophils % 0.3, Absolute Granulocytes 6.6 H, Absolute Lymphocytes 1.2, Absolute Monocytes 0.5, Absolute Eosinophils 0.1, Absolute Basophils 0, PUBS MCHC 32.8 L 11/29/161942: Anion Gap 12, Estimated GFR > 60, BUN/Creatinine Ratio 23.8, Glucose 95, Calcium 9.7, Total Bilirubin 0.8, AST 46 H, ALT 58 H, Alkaline Phosphatase 112, Total Protein 7.6, Albumin 4.3, Globulin 3.3, Albumin/Globulin Ratio 1.3, Vitamin B12 287, TSH 1.460 Assessment/Plan Assessment: 81-year-old female with past medical history of paroxysmal atrial fibrillation on xarelto, coronary artery disease status post bare metal stent, 6 years ago, compatible with MRI, sciatica, spinal stenosis, hyperlipidemia, arrhythmia and tachycardia status post Holter monitor placement, came in for chief complaint of left leg pain status post fall. Imaging does not reveal acute fracture. She was unable to bear weight on her left lower extremity due to severe pain. Therefore it will not be safe for her to go home, she is admitted currently in the general medical floor, for physical therapy evaluation and treatment. And according to physical therapist recommendation patient still needs further services for physical therapy and most likely will need a short-term rehabilitation upon discharge. #Continuing home medications otherwise #Diet heart healthy diet #Pain management with non-opiates as much as possible, DVT prophylaxis with Xarelto #CODE STATUS full code Problem List: 1. Left knee pain 2. Fall Pain Ratin Pain Location: left knee Pain Goal: Pain 4 or less Pain Plan: prn, non-opiates Tomorrow's Labs & Rationales: - ROMA CHAIDEZ,SUAD 11/30/16 1626: Attending MD Review Statement Attending Statement Attending MD Statement: examined this patient, discuss w/resident/PA/HAMMER HEATER, agreed w/resident/PA/HAMMER HEATER, reviewed EMR data (avail), discussed with nursing, discussed with case mgmt, amended to note Attending Assessment/Plan: Patient seen and examined. Resting comfortably not in acute distress. She reports worsening sciatic pain radiating down her right leg. She reports ongoing lower extremity weakness resulting in a fall. She denied any head trauma. She denied any loss of consciousness. She was evaluated by physical therapy service and found to be deconditioned. On examination she has no lateralizing signs. Recommendations: -Discontinue morphine. -Pain control with Tylenol IV [id number]. Continue tramadol for breakthrough pain. -Continue physical therapy as tolerated. -If patient improves over the next 48 hours she may be discharged home. If not she will require to be discharged to a correction facility for short-term rehabilitation.
[2016-11-30 08:09] LABS: ABSOLUTE BASOPHIL COUNT 0 /CUMM (0.0-0.2); ABSOLUTE EOSINOPHIL COUNT 0.1 /CUMM (0.0-0.7); ABSOLUTE GRANULOCYTE CT 6.4 /CUMM (1.4-6.5); ABSOLUTE LYMPH COUNT 1.3 /CUMM (1.2-3.4); ABSOLUTE MONOCYTE COUNT 0.6 /CUMM (0.10-0.60); BASOPHIL % 0.5 % (0.0-2.0); EOSINOPHIL % 1.1 % (0-5); GRANULOCYTE % 76.3 % (42.2-75.2); HEMATOCRIT 37.8 % (37-47); MEAN CORPUSCULAR HGB 30.1 PG (27.0-31.0); MEAN CORPUSCULAR HGB CONC 32.8 G/DL (33.0-37.0); MEAN PLATELET VOLUME 10.4 FL (7.4-10.4); PLATELET COUNT 172 /CUMM (130-400); RBC DISTRIBUTION WIDTH 15.7 % (11.5-14.5); RED BLOOD CELL CT 4.11 /CUMM (4.20-5.40); WHITE BLOOD CELL COUNT 8.4 /CUMM (4.8-10.8)
[2016-11-30 14:36] VITALS: BP 122/76
[2016-11-30 22:59] VITALS: BP 140/60
[2016-12-01 06:00] VITALS: BP 132/68
--- NOTE | 2016-12-01 07:01 | PN- Housestaff ---
BENITA CHAIDEZ,LEIGH ANN 12/01/16 0701: Subjective Follow-up For: Leg pain, left, following mechanical fall Subjective: I followed up and examined the patient today. She is resting comfortably in bed , and complains that she has right hip and thigh pain today, no other complaints. Vitals have been stable, no other overnight issues. Review of Systems Constitutional: Reports: see HPI. Objective Last 24 Hrs of Vital Signs/I&O Vital Signs Date Time Temp Pulse Resp B/P B/P Pulse O2 O2 Flow FiO2 Mean Ox Delivery Rate 12/01 1407 98.0 85 18 138/62 96 12/01 0920 60 158/72 12/01 0919 60 158/72 12/01 0600 98.3 67 18 132/68 96 Room Air 11/30 2259 98.2 54 20 140/60 94 Room Air Intake & Output 12/01 1600 12/01 0800 12/01 0000 Intake Total 840 100 930 Output Total 900 Balance 840 100 30 Intake, IV 240 0 130 Intake, Oral 600 100 800 Number 0 0 1 Bowel Movements Output, Urine 900 Physical Exam General Appearance: Alert, Oriented X3, Cooperative, No Acute Distress Other Physical Findings: Skin No Rashes, No Breakdown, No Significant Lesion HEENT Atraumatic, PERRLA, EOMI, Mucous Membr. moist/pink Lymphatic Cervical nl Cardiovascular Regular Rate, Normal S1, Normal S2, Lungs Clear to Auscultation, Normal Air Movement Abdomen Normal Bowel Sounds, Soft, No Tenderness Neurological Normal Speech, Strength at 5/5 X4 Ext, Sensation Intact Extremities No Edema, rle bigger than lle. chronic , tenderness over lateral left knee and calf. no effussion. RIGHT THIGH MUSCLE PAIN. Back/Hip TENDERNESS PRESENT OVER RIGHT LATERAL SIDE OF HIP RADIATING TO RIGHT THIGH- S/O MUSCULAR PAIN Vascular Normal Pulses, Pulses Symmetrical Current Medications: Current Medications Sig/Alexandra Start time Last Medication Dose Route Stop Time Status Admin Acetaminophen 1,000 MG Q6P PRN 11/30 1415 AC 12/01 N/A 1 UNIT IV 1357 Acetaminophen 650 MG Q6P PRN 11/29 2300 AC PO Amiodarone HCl 200 MG DAILY 11/30 1000 AC 12/01 PO 0920 Atorvastatin Calcium 80 MG 1700 11/30 1700 AC 12/01 PO 1640 Calcium Carbonate 500 MG DAILY 11/30 1225 AC 12/01 PO 0919 Cyclobenzaprine HCl 5 MG TID 12/01 1000 AC 12/01 PO 1640 Escitalopram Oxalate 10 MG DAILY 11/30 1000 AC 12/01 PO 0920 Melatonin 5 MG AT BEDTIME 12/01 0045 AC 12/01 PO 0100 Metoprolol Succinate 50 MG DAILY 11/30 1000 AC 12/01 PO 0919 Omeprazole 40 MG DAILY AC 11/30 0700 AC 12/01 PO 0649 Oxybutynin Chloride 5 MG DAILY 11/30 1000 AC 12/01 PO 0920 Rivaroxaban 20 MG DAILY 11/30 1000 AC 12/01 PO 0919 Tramadol HCl 50 MG Q6 PRN 11/29 2315 AC 12/01 PO 1235 Assessment/Plan Assessment: 81-year-old female with past medical history of paroxysmal atrial fibrillation on xarelto, coronary artery disease status post bare metal stent, 6 years ago, compatible with MRI, sciatica, spinal stenosis, hyperlipidemia, arrhythmia and tachycardia status post Holter monitor placement, came in for chief complaint of left leg pain status post fall. Imaging does not reveal acute fracture. She was unable to bear weight on her left lower extremity due to severe pain. Therefore it will not be safe for her to go home, she is admitted currently in the general medical floor, for physical therapy evaluation and treatment. And according to physical therapist recommendation patient still needs further services for physical therapy and most likely will need a short-term rehabilitation upon discharge. Of note, today she is having muscle pain, likely secondary to spasm. She would benefit from muscle relaxant like cyclobenzaprine. #Continuing home medications otherwise #Diet heart healthy diet #Pain management with non-opiates as much as possible, DVT prophylaxis with Xarelto #CODE STATUS full code Problem List: 1. Left knee pain 2. Fall 3. Muscle spasm 4. Muscle ache of extremity Pain Ratin Pain Location: RLE Pain Goal: Pain 4 or less Pain Plan: as before and flexeril Tomorrow's Labs & Rationales: - SUAD BRANDON MD 12/01/16 1223: Attending MD Review Statement Attending Statement Attending MD Statement: examined this patient, discuss w/resident/PA/DIGITAL MEDIA INTERN, agreed w/resident/PA/DIGITAL MEDIA INTERN, reviewed EMR data (avail), discussed with nursing, discussed with case mgmt, amended to note Attending Assessment/Plan: Patient seen and examined. Resting comfortably and not in any acute distress. No issues overnight reported by nursing staff. She reports adequate pain control on IV Tylenol however this morning she does complain of spasms of the right thigh. She otherwise has no complaints. She is afebrile. She is hemodynamically stable. Recommendations: -I agree with adding Flexeril to her regimen for a short course. -Continue physical therapy as tolerated. -Anticipate discharge tomorrow to [facility] facility if ambulatory status has not improved significantly enough to warrant discharge home.
--- NOTE | 2016-12-01 10:53 | Discharge Summary ---
Visit Information Visit Dates Admission Date: 11/29/16 Discharge Date: 12/02/16 Hospital Course Course Attending Physician: SUAD BRANDON M.D Primary Care Physician: JENNIFER CHAIDEZ,LACHO Bowden Hospital Course: 81-year-old female with multiple comorbidities presented to ER after fall. Patient presented to ER after fall. Patient was returning home from doctor's appointment when she was trying to climb up the stairs her left leg gave out and she fell twice in the short duration. Second time she could not move left leg because of severe pain in calf. She was unable to bear weight after fall so EMS was called and she was brought in ER. She denies any loss of consciousness, presyncope, palpitations, chest pain, other weakness in upper extremity, facial drooping. No obvious trauma. Left calf is tender to touch, more so on the lateral aspect, restricted range of motion secondary to pain. Multiple imaging obtain in ER is unremarkable at this point. Patient is unable to bear weight on left lower extremity and unable to ambulate. PMH: A. fib, HTN, HLD, CAD S/P stent, GERD, vertigo, lumbar radiculopathy, S/P LINQ placement Vitals: Afebrile, pulse 64, blood pressure, RRR, O2 saturation acceptable range. On exam: A O 3, cooperative, no acute distress, neck supple, JVD normal, no lymphadenopathy, mucosa moist, no focal neurological deficit, range of motions left lower extremity is limited secondary to pain in calf and lateral aspect of leg. There is no obvious knee effusion or open trauma. Left knee flexion up to 20 is possible. No dependent edema, no obvious skin rashes or inflammation CVS: S1-S2, RRR. RS: Clear to auscultate bilaterally. Abdomen: Soft, NT, ND, bowel sounds present. Labs: CBC, BMP unremarkable, AST 46, ALT 58, alkaline phosphatase 112, albumin 4.3 CT lumbar spine, CT lower extremity without IV contrast: 1. No visible fracture of left knee. There is diffuse osteopenia. There is tricompartment degenerative arthritis. No loose bodies or joint effusion seen. 2. Laminectomy from L1 to L5 vertebra. There is underlying diffuse bulge/ osteophyte complex L1-L2 level L2 L2 well 3-4 disc level and mild bulge L4-L5 disc levels but without spinal stenosis. 3. There is no visible acute fracture or dislocation. There is moderate ventral spondylosis. X-ray left knee, left tibia-fibula 1. Left knee. No fracture or dislocation. Degenerative joint disease. 2. Left tibia-fibula. Normal. Problem list + Mechanical Fall due to weakness/deconditioning + Left calf pain ? Musculoskeletal pain + History of A. fib, HTN, HLD, CAD, GERD, vertigo, lumbar radiculopathy Assessmenet/Plan 1. Left lower extremity weakness resulting in mechanical fall No evidence of a fracture. Physical therapy has been working with her and think she will benefit from STR. Pain management was with IV Tylenol, tramadol and morphine 2 mg. She lives by herself and will benefit from going to rehab. 2. Coronary artery disease s/p stent placements Continue on atorvastatin 80 mg daily, metoprolol 50 mg extended release 3. History of A. fib, arrhythmias Stable during this adminssion. Continue amiodarone 200 mg daily, Xarelto 20 mg daily 4. GERD Continue on Prilosec 40 mg daily 5. History of depression Continue Lexapro 10 mg daily 6. Urinary incontinence Patient is on oxybutynin 5 mg daily at home and should continue DVT prophylaxis On Xarelto 20 mg daily Complications: none Allergies: Coded Allergies: latex (BLISTERS 11/29/16) Disposition Summary Disposition Principal Diagnosis: + Mechanical Fall due to weakness/deconditioning Additional Diagnosis: + Left calf pain ? Musculoskeletal pain + History of A. fib, HTN, HLD, CAD, GERD, vertigo, lumbar radiculopathy Discharge Disposition: STR Discharge Instructions General Discharge Information Code Status: Full Code Patient's Diet: Regular Diet Patient's Activity: As tolerated Follow-Up Instructions/Appts: Please follow up with your PCP in 1 week of discharge Medications at Discharge Discharge Medications: Continue taking these medications: Rivaroxaban (Xarelto) 20 MG TABLET 1 Tablet ORAL DAILY Qty = 90 Instructions: with food Comments: Last Taken: 12/02/16 Time: 9AM Amiodarone HCl (Amiodarone HCl) 200 MG TABLET 1 Tablet ORAL DAILY Qty = 90 Comments: Last Taken: 12/02/16 Time: 9AM Atorvastatin Calcium (Atorvastatin Calcium) 80 MG TABLET 1 Tablet ORAL DAILY Qty = 90 Comments: Last Taken: 12/01/16 Time: 4PM Pantoprazole Sodium (Pantoprazole Sodium) 40 MG TABLET.DR 1 Tablet ORAL DAILY Qty = 90 Comments: Last Taken: 12/02/16 Time: 5AM PRILOSEC GIVEN SUBSTITUTION Metoprolol Succinate (Metoprolol Succinate) 50 MG TAB.ER.24H 1 Tablet ORAL DAILY Qty = 90 Comments: Last Taken: 12/02/16 Time: 9AM Solifenacin Succinate (Vesicare) 5 MG TABLET 1 Tablet ORAL DAILY Qty = 90 Comments: Last Taken: 12/02/16 Time: 9AM DITROPAN GIVEN SUBSTITUTION Escitalopram Oxalate (Escitalopram Oxalate) 10 MG TABLET 1 Tablet ORAL DAILY Qty = 90 Comments: Last Taken: 12/02/16 Time: 9AM Tramadol HCl (Tramadol HCl) 50 MG TABLET 1 Tablet ORAL Q4-6H as needed for PAIN Qty = 30 Comments: Last Taken: 12/02/16 Time: 11:30AM Multivitamin (Multi-Day Vitamins) 1 EACH TABLET 1 Tablet ORAL DAILY Comments: NOT GIVEN WHILE IN HOSPITAIL Magnesium (Magnesium) 200 MG TABLET 1 Tablet ORAL DAILY Comments: NOT GIVEN WHILE IN HOSPITAL Start taking the following new medications: Cyclobenzaprine HCl (Cyclobenzaprine HCl) 5 MG TABLET 5 Milligram ORAL THREE TIMES DAILY Qty = 10 No Refills Comments: Last Taken: 12/02/16 Time: 9AM Melatonin (Melatonin) 5 MG TABLET 5 Milligram ORAL AT BEDTIME as needed for SLEEP Qty = 5 No Refills Comments: Last Taken: 12/01/16 Time: 9PM Copies To: JENNIFER CHAIDEZ,LACHO Bowden Attending Review Statement Documenting Attending: SUAD BRANDON M.D Other Findings: I have reviewed the discharge summary.
--- NOTE | 2016-12-01 13:17 | Patient Discharge Instructions ---
Discharge Instructions General Discharge Information You were seen/treated for: Mechanical fall and soft tissue injury Special Instructions: Please work with Physical Therapist to get your strength back to baseline at SNF. Please visit Orthopedics doctor after your discharge. A referral has been provided to you. Please visit your PCP within ten days of discharge. Please return to emergency if symptoms worsen. Diet Continue normal diet: Yes Recommended Diet: Heart Healthy Activity Full Activity/No Limits: No Activity Self Limited: Yes Acute Coronary Syndrome Inclusion Criteria At DC or during hospital stay patient has or had the following: ACS DIAGNOSIS No Discharge Core Measures Meds if any: Prescribed or Continued at Discharge Meds if any: NOT Prescribed or Continued at Discharge Congestive Heart Failure Inclusion Criteria At DC or during hospital stay patient has or had the following: CHF DIAGNOSIS No Discharge Core Measures Meds if any: Prescribed or Continued at Discharge Meds if any: NOT Prescribed or Continued at Discharge Cerebrovascular accident Inclusion Criteria At DC or during hospital stay patient has or had the following: CVA/TIA Diagnosis No Discharge Core Measures Meds if any: Prescribed or Continued at Discharge Meds if any: NOT Prescribed or Continued at Discharge Venous thromboembolism Inclusion Criteria VTE Diagnosis No VTE Type NONE VTE Confirmed by (Test) NONE Discharge Core Measures - Per Current guidelines, there needs to be overlap - treatment for the first 5 days of Warfarin therapy. - If discharged on Warfarin prior to 5 days of - overlap therapy, the patient will need to be - assessed for post discharge needs including - *Post discharge parental anticoagulation - *Warfarin and/or parental anticoagulation education - *Follow up date to check INR post discharge At least 5 days overlap therapy as Inpatient No Meds if any: Prescribed or Continued at Discharge Note: Overlap Therapy is Warfarin and Anticoagulant Meds if any: NOT Prescribed or Continued at Discharge
[2016-12-01 14:07] VITALS: BP 138/62
[2016-12-01 22:41] VITALS: BP 118/60
--- NOTE | 2016-12-02 07:25 | PN- Housestaff ---
BENITA CHAIDEZ,LEIGH ANN 12/02/16 0724: Subjective Follow-up For: Leg pain, left, following mechanical fall Subjective: I followed up and examined the patient today. She is resting comfortably in bed , told me that muscle relaxer medication is working very well, and the pain management is adequate, does not offer any complaints. Vitals have been stable, no overnight issues. Review of Systems Constitutional: Reports: no symptoms. Objective Last 24 Hrs of Vital Signs/I&O Vital Signs Date Time Temp Pulse Resp B/P B/P Pulse O2 O2 Flow FiO2 Mean Ox Delivery Rate 12/02 1144 97.6 57 18 106/64 12/02 0928 57 106/64 12/02 0927 57 106/64 12/02 0817 Room Air 12/02 0732 97.6 60 18 130/62 95 Room Air 12/02 0039 54 20 98 Room Air 12/01 2241 97.9 50 20 118/60 96 Room Air Intake & Output 12/02 1600 12/02 0800 12/02 0000 Intake Total 240 Output Total 350 Balance -110 Intake, Oral 240 Output, Urine 350 Physical Exam General Appearance: Alert, Oriented X3, Cooperative, No Acute Distress Other Physical Findings: Skin No Rashes, No Breakdown, No Significant Lesion HEENT Atraumatic, PERRLA, EOMI, Mucous Membr. moist/pink Lymphatic Cervical nl Cardiovascular Regular Rate, Normal S1, Normal S2, Lungs Clear to Auscultation, Normal Air Movement Abdomen Normal Bowel Sounds, Soft, No Tenderness Neurological Normal Speech, Strength at 5/5 X4 Ext, Sensation Intact Extremities No Edema, rle bigger than lle. chronic , tenderness over lateral left knee and calf. no effussion. Right thigh pain better today. Back/Hip Still has tenderness over back and SI joints b/l. Chronic finding per patient. Vascular Normal Pulses, Pulses Symmetrical Current Medications: Current Medications Sig/Alexandra Start time Last Medication Dose Route Stop Time Status Admin Acetaminophen 1,000 MG Q6P PRN 11/30 1415 DCD 12/01 N/A 1 UNIT IV 2114 Acetaminophen 650 MG Q6P PRN 11/29 2300 DCD PO Amiodarone HCl 200 MG DAILY 11/30 1000 DCD 12/02 PO 0928 Atorvastatin Calcium 80 MG 1700 11/30 1700 DCD 12/01 PO 1640 Calcium Carbonate 500 MG DAILY 11/30 1225 DCD 12/01 PO 0919 Cyclobenzaprine HCl 5 MG TID 12/01 1000 DCD 12/02 PO 09 Escitalopram Oxalate 10 MG DAILY 11/30 1000 DCD 12/02 PO 09 Melatonin 5 MG AT BEDTIME 12/01 0045 DCD 12/01 PO 2115 Metoprolol Succinate 50 MG DAILY 11/30 1000 DCD 12/02 PO 09 Omeprazole 40 MG DAILY AC 11/30 0700 DCD 12/02 PO 0533 Oxybutynin Chloride 5 MG DAILY 11/30 1000 DCD 12/02 PO 0928 Patient Medication 1 ED .STK-MED ONE 12/02 1436 DC Teaching ED 12/02 1437 Rivaroxaban 20 MG DAILY 11/30 1000 DCD 12/02 PO 09 Tramadol HCl 50 MG Q6 PRN 11/29 2315 DCD 12/02 PO 1129 Assessment/Plan Assessment: 81-year-old female with past medical history of paroxysmal atrial fibrillation on xarelto, coronary artery disease status post bare metal stent, 6 years ago, compatible with MRI, sciatica, spinal stenosis, hyperlipidemia, arrhythmia and tachycardia status post Holter monitor placement, came in for chief complaint of left leg pain status post fall. Imaging does not reveal acute fracture. She was unable to bear weight on her left lower extremity due to severe pain. Therefore it will not be safe for her to go home, she is admitted currently in the general medical floor, for physical therapy evaluation and treatment. And according to physical therapist recommendation patient still needs further services for physical therapy and a short-term rehabilitation upon discharge. Her muscle pain is much better today, with cyclobenzaprine. Thus, she is being discharged to a short-term rehabilitation facility with a plan for further workup with physical therapist. Upon discharge, the rational for orthopedics service and her primary care physician has been placed. Patient has been explained about the condition and the plan, to which she fully agrees. #Continuing home medications otherwise #Diet heart healthy diet #Pain management with non-opiates as much as possible, DVT prophylaxis with Xarelto #CODE STATUS full code Problem List: 1. Left knee pain 2. Fall 3. Muscle spasm 4. Muscle ache of extremity Pain Ratin Pain Location: right thigh, left knee (getting better) Pain Goal: Pain 4 or less Pain Plan: prn Tomorrow's Labs & Rationales: - ROMA CHAIDEZ,MABLERusty 12/02/16 1229: Attending MD Review Statement Attending Statement Attending MD Statement: examined this patient, discuss w/resident/PA/HEAD SILVERMAN, agreed w/resident/PA/HEAD SILVERMAN, reviewed EMR data (avail), discussed with nursing, discussed with case mgmt, amended to note Attending Assessment/Plan: Patient seen and examined. Resting comfortably and not in any acute distress. No issues overnight. She reports adequate pain control when I evaluated at this morning. She is being [facility] for [facility]- [facility] rehabilitation as recommended by the physical therapy service. Once functional status has been optimized she may be transferred home at that time. She will continue on tramadol for pain control. She'll continue on Flexeril for antispasmodic therapy.
[2016-12-02 07:32] VITALS: BP 130/62
[2016-12-02 11:44] VITALS: BP 106/64
[2016-12-02] MEDS ORDERED: CYCLOBENZAPRINE5 M2 PO (11:59)
[2016-12-02] MEDS ORDERED: MELATONIN5 M7 PO (11:59)
== END 2016-12-02 13:15 | DRG 556 ==
LOC: ERH 17:37 → ERHI 20:41 → 2NA 20:41 → ENRESERV 22:11 → ENTRNSPT 22:43 → 2NA 23:15 → CMPTRNSPT 11-30 07:15 → 2NA 11-30 17:15 → DELTRNSPT 11-30 18:12 → 2NA 11-30 23:22 → ENPENDDIS 12-02 10:14 → 2NA 12-02 13:15
PROVIDERS: Emergency Medicine; Internal Medicine Infectious Disease; ADMIT Internal Medicine
DX: M25.562 Pain in left knee (principal); I48.0 Paroxysmal atrial fibrillation; Z79.01 Long term (current) use of anticoagulants; I25.10 Atherosclerotic heart disease of native coronary artery without angina pectoris; E78.5 Hyperlipidemia, unspecified; K21.9 Gastro-esophageal reflux disease without esophagitis; F32.9 Major depressive disorder, single episode, unspecified; R32 Unspecified urinary incontinence; W10.9XXA Fall (on) (from) unspecified stairs and steps, initial encounter; Y92.009 Unspecified place in unspecified non-institutional (private) residence as the place of occurrence of the external cause
CPT/HCPCS: 2NAP; 2NASP; 73562-LT; 73590-LT; 82436; 93005; 93010; 97110-GO; 97116-GO; 97161-GP; 97530-GO; J0131; J3490